=== PATIENT | female | born 1965 | race Caucasian/White ===

== ENCOUNTER 2024-05-04 12:18 | Day surgery (SDC) | payer MEDICAID ==
[~2024-05-04] VITALS: Ht 152.4 cm; Wt 88.0 kg
[2024-05-04] VITALS (11 sets, daily range): BP systolic 112–164; BP diastolic 55–89; PULSE 66–84; RESP 10–19; TEMP 99; O2SAT 93–97
[2024-05-04] MEDS ORDERED: glucagon, human recombinant 1mg kit SUBCUT PRN (12:45)
[2024-05-04] MEDS ORDERED: DEXTROSE 15 GM of carb/4 tabs (each vial/BOTTLE has 4 tablets) PO PRN ×2 (12:45)
[2024-05-04] MEDS ORDERED: dextrose 50%-water 50ml dispensing syringe IV PRN ×2 (12:45)
[2024-05-04 13:31] LABS: BASOPHILS # (AUTO) 0.1 X10'3 (0-0.2); BASOPHILS % (AUTO) 0.7 % (0-1); EOSINOPHILS # (AUTO) 0.2 X10'3 (0-0.9); HEMATOCRIT 40.4 % (35.0-45.0); HEMOGLOBIN 13.9 g/dl (12.0-16.0); LYMPHOCYTES # (AUTO) 2.6 X10'3 (1.1-4.8); MEAN CORPUSCULAR HEMOGLOBIN 29.6 PG (27.0-31.0); MEAN CORPUSCULAR HGB CONC 34.4 g/dL (33.0-36.5); MEAN CORPUSCULAR VOLUME 86.2 FL (78-98); MEAN PLATELET VOLUME 8.2 FL (7.4-10.4); MONOCYTES # (AUTO) 0.5 X10'3 (0-0.9); NEUTROPHILS # (AUTO) 4.5 X10'3 (1.8-7.7); NEUTROPHILS % (AUTO) 57.3 % (42-75); PLATELET COUNT 322 X10'3 (140-440); RED BLOOD COUNT 4.69 X10'6 (4.20-5.60); RED CELL DISTRIBUTION WIDTH 13.8 % (11.5-14.5); WHITE BLOOD COUNT 7.8 X10'3 (4.5-11.0)
[2024-05-04 13:39] LABS: ALBUMIN 3.8 G/DL (3.4-5.0); ANION GAP 9 (8-16); BLOOD UREA NITROGEN 19 MG/DL (7-18); BUN/CREATININE RATIO 20.2 (10.0-20.0); CALCIUM 9.4 MG/DL (8.5-10.1); CHLORIDE 105 MMOL/L (99-107); CREATININE 0.94 MG/DL (0.40-0.90); GLUCOSE 110 MG/DL (70-104); POTASSIUM 3.9 MMOL/L (3.5-5.1); SODIUM 140 MMOL/L (135-145); TOTAL CARBON DIOXIDE 26.3 MMOL/L (24-32); eCRCL 48 ML/MIN; eGFR 62 ML/MIN
[2024-05-04 13:41] LABS: APTT 27 SECONDS (22-32); PROTHROMBIN TIME 10.2 SECONDS (9.0-12.0)
[2024-05-04] MEDS ORDERED: ASPI-611 PO (14:16)
[2024-05-04] MEDS ORDERED: INSU100I31 SQ (14:16)
[2024-05-04] MEDS ORDERED: OMEP40CA21 PO (14:16)
[2024-05-04] MEDS ORDERED: LOSA50TA64 PO (14:16)
[2024-05-04] MEDS ORDERED: CHOL10005 PO (14:16)
[2024-05-04] MEDS ORDERED: METF-438 PO (14:16)
[2024-05-04] MEDS ORDERED: ALBU18HF2 INH (14:16)
[2024-05-04] MEDS: normal saline 1,000 ML IV SCH (14:37)
[2024-05-04] MEDS: LORazepam 0.5 MG tablet PO PRN (14:37)
[2024-05-04] MEDS: diphenhydrAMINE 25mg capsule PO PRN (14:38)
[2024-05-04] MEDS ORDERED: midazolam 1 mg/ML 2ml injection ONE ×2 (14:39→15:13)
[2024-05-04] MEDS ORDERED: fentaNYL/PF 50MCG/1 ML 2ML syringe ONE (14:39)
[2024-05-04] MEDS ORDERED: iohexol 350MG/ML 100ml bottle IV ONE (14:39)
[2024-05-04] MEDS ORDERED: LIDOcaine 1% 30ml preserv. free vial ONE (14:39)
[2024-05-04] MEDS ORDERED: nitroGLYCERIN 0.4mg SUBLingual tab SL PRN (16:00)
[2024-05-04] MEDS ORDERED: proCHLORperazine 10 MG/2 ml inj IV PRN (16:00)
[2024-05-04] MEDS ORDERED: OXAZEpam 15mg capsule PO PRN (16:00)
[2024-05-04] MEDS ORDERED: HYDROcodone/acetaminophen 5mg/325mg tablet PO PRN (16:00)
[2024-05-04] MEDS ORDERED: HYDROcodone/acetaminophen 10/325mg tab PO PRN (16:00)
[2024-05-04] MEDS ORDERED: ondansetron/PF 4mg/2ml inj IV PRN (16:00)
[2024-05-04] MEDS ORDERED: INSULIN LISPRO 100 UNIT/ML INSULN.PEN MULTI-DOSE SQ SCH (17:00)
== END 2024-05-04 20:38 | disposition home or self-care (01) ==
LOC: SSTAY O 12:18
PROVIDERS: ATTEND Internal Medicine Cardiovascular Disease
DX: R94.39 Abnormal result of other cardiovascular function study (principal); I25.119 Atherosclerotic heart disease of native coronary artery with unspecified angina pectoris; I10 Essential (primary) hypertension; E11.9 Type 2 diabetes mellitus without complications; E66.9 Obesity, unspecified; Z68.37 Body mass index [BMI] 37.0-37.9, adult
CPT/HCPCS: 36415; 71046; 80048; 82948; 83036; 85025; 85610; 85730; 93005; 93458; 99152; 99153; J1644; J2250; J3010; J3490; J7030; Q0163; Q9967; A6258; C1760; J1815